=== PATIENT | female | born 1970 | race Caucasian/White ===

== ENCOUNTER 2023-08-30 16:17 | Outpatient (CLI) | payer OTHER ==
[2023-08-30 16:43] LABS: HCT - HEMATOCRIT 42.3 % (37.0-47.0); HGB - HEMOGLOBIN 13.4 g/dL (12.0-16.0); MEAN CORPUSCULAR HEMOGLOBIN 27.9 pg (27.0-31.0); MEAN CORPUSCULAR HGB CONC 31.7 g/dL (32.0-36.0); MEAN CORPUSCULAR VOLUME 88.1 fL (81.0-99.0); MEAN PLATELET VOLUME 10.5 fL (7.9-10.8); RED BLOOD COUNT 4.8 10^6/uL (4.20-5.40); RED CELL DISTRIBUTION WIDTH 14.9 % (12.0-15.0); WHITE BLOOD COUNT 9.5 x10^3/uL (4.8-10.8)
[2023-08-30 17:24] LABS: PROLACTIN 5.53 ng/mL; THYROID STIMULATING HORMONE 1.64 uIU/mL (0.34-5.60)
[2023-08-30 22:21] LABS: ESTIMATED AVERAGE GLUCOSE 97 mg/dL (70-100)
== END 2023-08-30 16:18 | disposition home or self-care (01) ==
LOC: LAB 16:17
PROVIDERS: ATTEND Obstetrics & Gynecology
DX: N92.4 Excessive bleeding in the premenopausal period (principal); N64.52 Nipple discharge
CPT/HCPCS: 36415; 83036; 84146; 84443; 85027

== ENCOUNTER 2023-09-16 09:53 | Outpatient (CLI) | payer OTHER ==
--- NOTE | 2023-09-17 13:05 | Ultrasound Report ---
PROCEDURE: Pelvic w/Transvaginal INDICATIONS: MENORRHAGIA TECHNIQUE: Real-time scanning was performed of the pelvic organs, with image documentation. Additional endovagi nal scanning was necessary due to incomplete visualization of the adnexal and endometrial structures by transabdominal scanning. COMPARISON: None. FINDINGS: Uterus: Uterus is anteverted and normal in size at 9.5 x 4.9 x 5.4 cm. The myometrium is heterogene ous. The endometrium measures 7 mm in combined thickness. Cluster of probable nabothian cysts measu ring 1.3 x 0.5 x 1 cm with no definite solid component. Cervix and vagina are otherwise normal. IUD a ppears in appropriate position. Ovaries: The right ovary measures 2.8 x 1.7 x 2 cm, with a calculated ovarian volume of 4.9 cc. The left ovary measures 1.9 x 1.2 x 1.3 cm, with a calculated ovarian volume of 1.5 cc. The ovaries hav e a normal sonographic appearance. Less than 12 follicles can be seen in each ovary. No adnexal mas ses are seen. No cystic lesions measuring greater than 3 cm. Other: No pathologic free abdominal or pelvic fluid. IMPRESSION: 1.IUD is in appropriate position. 2.Endometrial thickness measures 7 mm. No uterine fibroids. 3.Cluster of probable nabothian cysts (tunnel cluster) in the cervix measuring 1.3 x 0.5 x 1 cm with no definite solid component. Consider a short interval ultrasound follow-up in 3 months. Reviewed by: Justin Ny MD on 09/17/2023 1:03 PM PST Approved by: Justin Ny MD on 09/17/2023 1:03 PM PST Station ID: [id number]
== END 2023-09-16 09:54 | disposition home or self-care (01) ==
LOC: DI 09:53
PROVIDERS: ATTEND Obstetrics & Gynecology
DX: N88.8 Other specified noninflammatory disorders of cervix uteri (principal); N92.4 Excessive bleeding in the premenopausal period; Z97.5 Presence of (intrauterine) contraceptive device